=== PATIENT | female | born 1975 | race Caucasian/White ===

== ENCOUNTER 2024-05-12 11:07 | Emergency (ER) | payer SELFPAY ==
[~2024-05-12] VITALS: Ht 167.6 cm; Wt 113.6 kg
[2024-05-12] MEDS ORDERED: GABA-1216 PO (11:15)
[2024-05-12] MEDS ORDERED: TIRZ5PEN SQ (11:15)
[2024-05-12] MEDS ORDERED: LOSA-382 PO (11:15)
[2024-05-12] MEDS ORDERED: DAPA1TAB3 PO (11:15)
[2024-05-12 11:41] LABS: COVID AG,FIA SOURCE NASAL SWAB
[2024-05-12] MEDS: ACETAMINOPHEN 500 MG TABLET PO ONE (12:01)
[2024-05-12] MEDS: IBUPROFEN 600 MG TABLET PO ONE (12:01)
[2024-05-12 12:10] LABS: SARS-COV2 (COVID) ANTIGEN,FIA Negative (Negative)
[2024-05-12 12:11] LABS: INFLUENZA TYPE B NEGATIVE FOR TYPE B (NEGATIVE)
[2024-05-12 12:16] LABS: INFLUENZA TYPE A POSITIVE FOR TYPE A (NEGATIVE)
[2024-05-12 13:00] VITALS: BP 116/71; PULSE 103; RESP 18; TEMP 99.2; O2SAT 99
[2024-05-12] MEDS ORDERED: OSEL75CA45 PO (13:11)
== END 2024-05-12 13:32 | disposition home or self-care (01) ==
LOC: EMS 11:07
DX: J11.1 Influenza due to unidentified influenza virus with other respiratory manifestations (principal); I10 Essential (primary) hypertension; Z20.822 Contact with and (suspected) exposure to COVID-19
CPT/HCPCS: 71045; 82962; 87804; 99284